=== PATIENT | male | born 1940 | race Asian ===

== ENCOUNTER 2022-09-04 05:21 | Day surgery (SDC) | payer MEDICARE, OTHER ==
[2022-09-03 10:28] LABS: COVID AG,FIA SOURCE NASOPHARYNGEAL
[2022-09-03 10:54] LABS: BASOPHILS % (AUTO) 0.2 % (0.0-2.0); EOSINOPHILS % (AUTO) 0.8 % (1.0-6.0); HEMATOCRIT 42.7 % (41-53); HEMOGLOBIN 14.2 g/dL (13.5-17.5); LYMPHOCYTES # (AUTO) 0.7 K/uL (1.0-4.8); LYMPHOCYTES % (AUTO) 10.4 % (22.0-44.0); MEAN CORPUSCULAR HEMOGLOBIN 32.9 pg (26.0-34.0); MEAN CORPUSCULAR HGB CONC 33.3 G/dL (31.0-37.0); MEAN CORPUSCULAR VOLUME 99 fL (80-100); MONOCYTES # (AUTO) 0.3 K/uL (0.1-1.0); MONOCYTES % (AUTO) 5.1 % (2.0-9.0); NEUTROPHILS # (AUTO) 5.5 K/uL (1.8-7.7); NEUTROPHILS % (AUTO) 83.5 % (40.0-70.0); PLATELET COUNT (AUTO) 236 K/uL (150-450); RED BLOOD CELL COUNT(AUTO) 4.32 MIL/uL (4.50-5.90); RED CELL DISTRIBUTION WIDTH 12.8 % (11.5-14.5)
[2022-09-03 10:55] LABS: ANION GAP 7 mmol/L (8-16); CALCIUM, TOTAL 9.4 mg/dL (8.8-10.5); CARBON DIOXIDE 30 mmol/L (22-29); CHLORIDE 104 mmol/L (98-107); CREATININE 1.06 mg/dL (0.60-1.30); GLUCOSE,RANDOM 108 mg/dL (70-110); POTASSIUM 4.9 mmol/L (3.5-5.1); SODIUM SERUM 141 mmol/L (136-145); UREA NITROGEN, BLOOD 14 mg/dL (7-18)
[2022-09-03 10:56] LABS: GLOMERULAR FILTR. RATE CALC > 60 mL/min (>60)
[2022-09-03 11:00] LABS: PROTHROMBIN TIME 10.6 SEC (9.4-11.6)
[~2022-09-04] VITALS: Ht 171.4 cm; Wt 73.1 kg
[2022-09-04] MEDS ORDERED: SODIUM CHLORIDE 0.9% 1,000 ML IV ONE ×2 (05:30→09:45)
[2022-09-04] MEDS ORDERED: DiphenhydrAMINE HCL 50 MG CAPSULE PO ONE (06:15)
[2022-09-04] MEDS ORDERED: DIAZEPAM 5 MG TABLET PO ONE (06:15)
[2022-09-04] MEDS ORDERED: SODIUM CHLORIDE 0.9% 500 ML IV ONE (06:15)
[2022-09-04] MEDS ORDERED: SODIUM CHLORIDE 0.9% 1,000 ML ONE (06:30)
[2022-09-04] MEDS ORDERED: DiphenhydrAMINE HCL 50 MG CAPSULE ONE (06:32)
[2022-09-04] MEDS ORDERED: DIAZEPAM 5 MG TABLET ONE (06:32)
[2022-09-04] MEDS ORDERED: IOHEXOL 300 MG/ML 50 ML VIAL ONE ×2 (06:36→08:47)
[2022-09-04] MEDS ORDERED: LIDOCAINE/PF 1% 30 ML VIAL ONE (06:36)
[2022-09-04] MEDS ORDERED: HEPARIN SODIUM 1000 UNITS/NS 1,000 ML ONE (06:36)
[2022-09-04] MEDS ORDERED: SODIUM BICARBONATE 50 MEQ/50 ML VIAL ONE (06:36)
[2022-09-04] MEDS ORDERED: IOHEXOL 300 MG/ML 100 ML VIAL ONE ×3 (06:36→08:48)
[2022-09-04] MEDS ORDERED: NITROGLYCERIN 50 MG/D5% WATER 250 ML ONE (06:37)
[2022-09-04] MEDS ORDERED: AMLO-258 PO (06:49)
[2022-09-04] MEDS ORDERED: TELM20 PO (06:50)
[2022-09-04] MEDS ORDERED: ASPI-1450 PO (06:51)
[2022-09-04] MEDS ORDERED: ISOS30TA92 PO (06:51)
[2022-09-04] MEDS ORDERED: ROSU10TA72 PO (06:51)
[2022-09-04] MEDS ORDERED: METO-558 PO (06:52)
[2022-09-04] MEDS ORDERED: CETI-450 PO (06:52)
[2022-09-04] MEDS ORDERED: MIDAZOLAM HCL 2 MG/2 ML VIAL ONE ×2 (07:48→08:28)
[2022-09-04] MEDS ORDERED: FentaNYL CITRATE PF 100 MCG/2 ML VIAL ONE (07:48)
[2022-09-04] MEDS ORDERED: LIDOCAINE 1% 30 ML/SOD BICARB 8.4% 4 ML SQ ONE (08:15)
[2022-09-04] MEDS ORDERED: HEPARIN SODIUM 1000 UNITS/NS 1,000 ML IARTER ONE (08:15)
[2022-09-04] MEDS ORDERED: IOHEXOL 300 MG/ML 100 ML VIAL IARTER ONE ×2 (08:15→08:45)
[2022-09-04] MEDS ORDERED: MIDAZOLAM HCL 2 MG/2 ML VIAL IVP ONE ×2 (08:30→09:15)
[2022-09-04] MEDS ORDERED: FentaNYL CITRATE PF 100 MCG/2 ML VIAL IVP ONE ×2 (08:30→09:15)
[2022-09-04] MEDS ORDERED: IOHEXOL 300 MG/ML 100 ML VIAL ICOR ONE (09:15)
[2022-09-04] MEDS ORDERED: HEPARIN SODIUM,PORCINE 1,000 UNITS/ML 10 ML VIAL IVP ONE (09:15)
[2022-09-04] MEDS ORDERED: NITROGLYCERIN/D5W 50 MG/250 ML IV BOTTLE ICOR ONE ×3 (09:15→09:30)
[2022-09-04] MEDS ORDERED: CLOPIDOGREL BISULFATE 300 MG TABLET ONE (09:18)
[2022-09-04] MEDS ORDERED: CLOPIDOGREL BISULFATE 300 MG TABLET PO ONE (09:30)
[2022-09-04 09:32] VITALS: BP 140/67
[2022-09-04] MEDS ORDERED: CLOP-31 PO (09:39)
[2022-09-04] MEDS ORDERED: ACETAMINOPHEN 325 MG TABLET PO ONE (09:45)
[2022-09-04] MEDS ORDERED: MORPHINE SULFATE 2 MG/ML SYRINGE IVP PRN (09:45)
== END 2022-09-04 15:00 | disposition home or self-care (01) ==
LOC: CATHLAB 05:21
PROVIDERS: ATTEND Internal Medicine Cardiovascular Disease
DX: R94.39 Abnormal result of other cardiovascular function study (principal); I25.10 Atherosclerotic heart disease of native coronary artery without angina pectoris; I25.2 Old myocardial infarction; I10 Essential (primary) hypertension; E78.2 Mixed hyperlipidemia; I25.5 Ischemic cardiomyopathy; I70.212 Atherosclerosis of native arteries of extremities with intermittent claudication, left leg; E11.9 Type 2 diabetes mellitus without complications; Z95.5 Presence of coronary angioplasty implant and graft; M10.9 Gout, unspecified; Z20.822 Contact with and (suspected) exposure to COVID-19; Z79.01 Long term (current) use of anticoagulants; Z87.891 Personal history of nicotine dependence
CPT/HCPCS: 80048; 85025; 85610; 85730; 36415; 93005; 87426; 99152; 99153; 93459; C9803; C9604; C1760; C1887; C1874; J3010; J1644; J3490 ×3; J2250; J7030; Q9967 ×2; 92920; 92928

== ENCOUNTER 2022-10-16 06:01 | Day surgery (SDC) | payer MEDICARE, OTHER ==
[2022-10-15 10:31] LABS: COVID AG,FIA SOURCE NASOPHARYNGEAL
[2022-10-15 10:35] LABS: BASOPHILS % (AUTO) 0.1 % (0.0-2.0); EOSINOPHILS % (AUTO) 0.6 % (1.0-6.0); HEMATOCRIT 43.4 % (41-53); LYMPHOCYTES # (AUTO) 0.4 K/uL (1.0-4.8); LYMPHOCYTES % (AUTO) 6.3 % (22.0-44.0); MEAN CORPUSCULAR HEMOGLOBIN 31.9 pg (26.0-34.0); MEAN CORPUSCULAR HGB CONC 32.3 G/dL (31.0-37.0); MEAN CORPUSCULAR VOLUME 99 fL (80-100); MONOCYTES # (AUTO) 0.4 K/uL (0.1-1.0); MONOCYTES % (AUTO) 5.2 % (2.0-9.0); PLATELET COUNT (AUTO) 205 K/uL (150-450); RED CELL DISTRIBUTION WIDTH 13.1 % (11.5-14.5)
[2022-10-15 10:39] LABS: NEUTROPHILS % (AUTO) 87.8 % (40.0-70.0)
[2022-10-15 10:50] LABS: PROTHROMBIN TIME 10.4 SEC (9.4-11.6)
[2022-10-15 11:24] LABS: ANION GAP 9 mmol/L (8-16); CALCIUM, TOTAL 9.3 mg/dL (8.8-10.5); CARBON DIOXIDE 25 mmol/L (22-29); CHLORIDE 103 mmol/L (98-107); CREATININE 0.91 mg/dL (0.60-1.30); GLUCOSE,RANDOM 106 mg/dL (70-110); POTASSIUM 4.2 mmol/L (3.5-5.1); SODIUM SERUM 137 mmol/L (136-145); UREA NITROGEN, BLOOD 13 mg/dL (7-18)
[2022-10-15 11:25] LABS: GLOMERULAR FILTR. RATE CALC > 60 mL/min (>60)
[~2022-10-16] VITALS: Ht 171.4 cm; Wt 72.7 kg
[~2022-10-16 06:01] MED LIST: AMLO-258 PO; CLOP-31 PO; ISOS30TA92 PO; METO-558 PO; ROSU10TA72 PO; TELM20 PO
[2022-10-16] MEDS ORDERED: IOHEXOL 300 MG/ML 100 ML VIAL ONE ×3 (07:09→08:35)
[2022-10-16] MEDS ORDERED: HEPARIN SODIUM 1000 UNITS/NS 1,000 ML ONE (07:09)
[2022-10-16] MEDS ORDERED: LIDOCAINE/PF 1% 30 ML VIAL ONE (07:09)
[2022-10-16] MEDS ORDERED: SODIUM BICARBONATE 50 MEQ/50 ML VIAL ONE (07:09)
[2022-10-16] MEDS ORDERED: IOHEXOL 300 MG/ML 50 ML VIAL ONE (07:09)
[2022-10-16] MEDS ORDERED: NITROGLYCERIN 50 MG/D5% WATER 250 ML ONE (07:09)
[2022-10-16] MEDS ORDERED: SODIUM CHLORIDE 0.9% 1,000 ML ONE (07:16)
[2022-10-16] MEDS ORDERED: FentaNYL CITRATE PF 100 MCG/2 ML VIAL ONE (07:49)
[2022-10-16] MEDS ORDERED: MIDAZOLAM HCL 2 MG/2 ML VIAL ONE (07:49)
[2022-10-16] MEDS ORDERED: ADENOSINE 3 MG/ML 2 ML VIAL ONE (07:53)
[2022-10-16] MEDS ORDERED: IOHEXOL 300 MG/ML 100 ML VIAL ICOR ONE ×2 (08:00→09:15)
[2022-10-16] MEDS ORDERED: HEPARIN SODIUM 1000 UNITS/NS 1,000 ML IARTER ONE ×2 (08:00→09:15)
[2022-10-16] MEDS ORDERED: LIDOCAINE 1% 30 ML/SOD BICARB 8.4% 4 ML SQ ONE (08:00)
[2022-10-16] MEDS ORDERED: SODIUM CHLORIDE 0.9% 1,000 ML IV ONE (08:00)
[2022-10-16] MEDS ORDERED: MIDAZOLAM HCL 2 MG/2 ML VIAL IVP ONE (08:15)
[2022-10-16] MEDS ORDERED: FentaNYL CITRATE PF 100 MCG/2 ML VIAL IVP ONE ×2 (08:15→10:00)
[2022-10-16] MEDS ORDERED: HEPARIN SODIUM,PORCINE 1,000 UNITS/ML 10 ML VIAL ONE (08:23)
[2022-10-16 08:33] VITALS: BP 138/71
[2022-10-16] MEDS ORDERED: NITROGLYCERIN/D5W 50 MG/250 ML IV BOTTLE ICOR ONE ×5 (09:00→09:45)
[2022-10-16] MEDS ORDERED: HEPARIN SODIUM 1000 UNITS/NS 500 ML ONE (09:10)
[2022-10-16 09:48] VITALS: BP 150/78
[2022-10-16] MEDS ORDERED: ACETAMINOPHEN 500 MG TABLET PO PRN (10:15)
[2022-10-16] MEDS ORDERED: SODIUM CHLORIDE 0.9% 500 ML IV ONE (10:15)
== END 2022-10-16 14:00 | disposition home or self-care (01) ==
LOC: CATHLAB 06:01
PROVIDERS: ATTEND Internal Medicine Cardiovascular Disease
DX: I25.10 Atherosclerotic heart disease of native coronary artery without angina pectoris (principal); Z79.01 Long term (current) use of anticoagulants; Z20.822 Contact with and (suspected) exposure to COVID-19; I10 Essential (primary) hypertension; I25.2 Old myocardial infarction; Z79.899 Other long term (current) drug therapy; Z98.890 Other specified postprocedural states
CPT/HCPCS: 80048; 85025; 85610; 85730; 36415; 93005; 87426; 99152; 99153; 93455; C9803; C9604; C1724; C1760; C1887; C1874; J3010; J1644 ×2; J3490 ×3; J2250; J7030; Q9967 ×2; 37229; 37236; 92920; 92921; 92928; J0153